=== PATIENT | female | born 1935 | race Caucasian/White ===

== ENCOUNTER → 2016-09-27 | Outpatient (CLI) | payer MEDICARE ==
[~2016-09-27] MED LIST: ALPRAZOLAM PO; ASPIRIN PO; ASPIRIN81 M1 PO; ATARAX PO; CALAN SR PO; CITRACEL; DICYCLOMINE HCL20 MG PO; FERROUS SULFATE PO; GLUCOSAMINE; GLUCOTROL PO; GLYNASE PO; KEFLEX PO; KEFLEX500 M1 PO; LASIX PO; LISINOPRIL PO; LOTRISONE CREAM45 GM TOP; METAMUCIL0.52 G PO; METFORMIN PO; NEPHROCAPS CAPSU1 MG PO; PENICILLIN; ZOCOR PO
--- NOTE | ~2016-09-27 | PFT ---
[id number] [facility]. [place], [place] [address] [id number] O MR#: [id number] NAME: SOHAM SMITH ROOM: SEX: F STUDY DATE/TIME: 09/27/2016 : 1935 AGE: 81 STUDY DESCRIPTION: Attending Physician: Tigre Lombardi M.D. Referring Physician: Tigre Lombardi M.D. Primary Care Physician: Tigre Lombardi M.D. PULMONARY DIAGNOSTIC REPORT EXAM Pulmonary function tests. FINDINGS Spirometry is suggestive of a restrictive defect; however, after bronchodilators, there was a mild obstructive defect. FEV-1 was 1.08 L, 66% of predicted. No significant change in FEV-1 was identified after bronchodilators. Some of the improvement in FVC may have been related to effort. Lung volumes suggest air trapping. Diffusion capacity is normal. Dictated by... Garima Golden/charla TD: 09/28/2016 08:58 JOB #: [id number] CC: Tigre Lombardi M.D. PULMONARY DIAGNOSTIC REPORT Page 1 of 1
== END | disposition home or self-care (01) ==
LOC: CRC 10:39
DX: R06.09 Other forms of dyspnea (principal)
CPT/HCPCS: 94060; 94726; 94729